=== PATIENT | female | born 1960 | race Caucasian/White ===

== ENCOUNTER 2017-06-03 02:57 | Emergency (ER) | payer OTHER ==
[~2017-06-03] VITALS: Ht 157.5 cm; Wt 81.6 kg
[2017-06-03 03:03] VITALS: Ht 157.5 cm; Wt 81.6 kg
[2017-06-03 04:42] LABS: CALCIUM 8.7 mg/dL (8.5-10.1); CARBON DIOXIDE 23.1 mmol/L (21-32); CHLORIDE SERUM 105 mmol/L (98-107); CREATININE SERUM 0.8 mg/dL (0.6-1.0); GFR1 > 60 mL/min; GLUCOSE SERUM 118 mg/dL (74-106); SODIUM SERUM 140 mmol/L (136-145)
[2017-06-03 04:46] LABS: BASOPHIL % 0.5 % (0-2); PLATELET COUNT 194 x10^3mcL (130-400); RED CELL DISTRIBUTION WIDTH 14.9 % (11.5-14.5)
[2017-06-03 04:48] LABS: ALBUMIN 3.9 g/dL (3.4-5.0); ALKALINE PHOSPHATASE 151 U/L (46-116); ALT/SGPT 30 U/L (14-59); AST/SGOT 16 U/L (15-37); BILIRUBIN TOTAL 0.3 mg/dL (0.20-1.00); TOTAL PROTEIN, SERUM 7.2 g/dL (6.4-8.2)
[2017-06-03 06:35] VITALS: BP 120/68
== END 2017-06-03 06:35 | disposition home or self-care (01) ==
LOC: ED 02:57
PROVIDERS: Emergency Medicine Emergency Medical Services
DX: R07.89 Other chest pain (principal); E05.90 Thyrotoxicosis, unspecified without thyrotoxic crisis or storm; Z88.0 Allergy status to penicillin; Z90.710 Acquired absence of both cervix and uterus
CPT/HCPCS: 36415; 85378

== ENCOUNTER 2017-06-14 01:22 | Inpatient (IN) | payer OTHER ==
[~2017-06-14] VITALS: Ht 157.5 cm; Wt 85.0 kg
[2017-06-14 01:28] VITALS: Ht 157.5 cm; Wt 85.0 kg
[2017-06-14 02:38] LABS: BASOPHIL % 0.4 % (0-2); PLATELET COUNT 221 x10^3mcL (130-400)
[2017-06-14 02:46] LABS: CALCIUM 9.6 mg/dL (8.5-10.1); CARBON DIOXIDE 26.7 mmol/L (21-32); CHLORIDE SERUM 104 mmol/L (98-107); CREATININE SERUM 0.7 mg/dL (0.6-1.0); GFR1 > 60 mL/min; GLUCOSE SERUM 121 mg/dL (74-106); POTASSIUM SERUM 4.4 mmol/L (3.5-5.1); RED CELL DISTRIBUTION WIDTH 14.6 % (11.5-14.5); SODIUM SERUM 140 mmol/L (136-145)
[2017-06-14 02:51] LABS: ALBUMIN 4.1 g/dL (3.4-5.0); ALKALINE PHOSPHATASE 154 U/L (46-116); ALT/SGPT 38 U/L (14-59); AST/SGOT 23 U/L (15-37); BILIRUBIN TOTAL 0.24 mg/dL (0.20-1.00); TOTAL PROTEIN, SERUM 7.7 g/dL (6.4-8.2)
[2017-06-14 03:07] LABS: FREE T4 0.74 ng/dL (0.76-1.46)
[2017-06-14] MEDS ORDERED: METHIMAZOLE10 MG PO (04:21)
[2017-06-14 04:54] LABS: MAGNESIUM 2.1 mg/dL (1.8-2.4)
[2017-06-14 04:58] VITALS: BP 114/88
[2017-06-14 05:01] LABS: T3 TOTAL 0.98 ng/mL
[2017-06-14 05:02] LABS: FREE T4 0.76 ng/dL (0.76-1.46); FREE THYROXINE INDEX 1.6 ug/dL (1.4-4.5); T4(THYROXINE) 5.4 ug/dL (4.7-13.3)
[2017-06-14 06:07] VITALS: BP 114/68
[2017-06-14 10:20] VITALS: BP 106/64
[2017-06-14 12:04] LABS: microscopic required? NO
[2017-06-14 12:22] LABS: urine erythrocyte NEGATIVE (NEGATIVE)
[2017-06-14 12:31] LABS: AMPHETAMINE QUAL UR NONE DETECTED (NEG <=1000)
[2017-06-14 13:35] VITALS: BP 102/84
[2017-06-14 17:44] VITALS: BP 101/56
[2017-06-14 21:35] VITALS: BP 110/66
[2017-06-15 05:29] VITALS: BP 106/62
[2017-06-15 06:44] LABS: BASOPHIL % 0.2 % (0-2); PLATELET COUNT 182 x10^3mcL (130-400)
[2017-06-15 06:48] LABS: CALCIUM 8.9 mg/dL (8.5-10.1); CHLORIDE SERUM 105 mmol/L (98-107); CREATININE SERUM 0.7 mg/dL (0.6-1.0); GFR1 > 60 mL/min; GLUCOSE SERUM 107 mg/dL (74-106); POTASSIUM SERUM 4.1 mmol/L (3.5-5.1); SODIUM SERUM 138 mmol/L (136-145)
[2017-06-15 06:56] LABS: RED CELL DISTRIBUTION WIDTH 15.2 % (11.5-14.5)
[2017-06-15] MEDS ORDERED: LEVAQUIN750 MG PO (08:49)
[2017-06-15] MEDS ORDERED: CLEOCIN HCL300 MG PO (08:49)
[2017-06-15] MEDS ORDERED: LAC PO (08:54)
[2017-06-15] MEDS ORDERED: COL100 PO (09:22)
[2017-06-15] MEDS ORDERED: APAP/HYDROCODON1 T13 PO (09:23)
[2017-06-15 09:30] VITALS: BP 93/53
[2017-06-15 10:17] VITALS: BP 93/53
== END 2017-06-15 13:11 | disposition home or self-care (01) | DRG 139 ==
LOC: ED 01:22 → DU 04:03 → MU 06-15 07:49
PROVIDERS: Emergency Medicine; Family Medicine
DX: J18.9 Pneumonia, unspecified organism (principal); E05.90 Thyrotoxicosis, unspecified without thyrotoxic crisis or storm; E78.2 Mixed hyperlipidemia; Z88.0 Allergy status to penicillin; Z90.710 Acquired absence of both cervix and uterus
CPT/HCPCS: 83880; 84439; 85378; J1885; J1956; J2270; J3490; J7030; Q0092

== ENCOUNTER 2017-06-25 02:04 | Inpatient (IN) | payer OTHER ==
[~2017-06-25] VITALS: Ht 157.5 cm; Wt 79.8 kg
[2017-06-25] VITALS (7 sets, daily range): BP systolic 105–125; BP diastolic 46–73
[~2017-06-25 02:04] MED LIST: APAP/HYDROCODON1 T13 PO; CLEOCIN HCL300 MG PO; COL100 PO; LAC PO; LEVAQUIN750 MG PO; METHIMAZOLE10 MG PO
[2017-06-25 03:09] LABS: CALCIUM 9.3 mg/dL (8.5-10.1); CARBON DIOXIDE 25.7 mmol/L (21-32); CHLORIDE SERUM 104 mmol/L (98-107); CREATININE SERUM 0.7 mg/dL (0.6-1.0); GFR1 > 60 mL/min; GLUCOSE SERUM 132 mg/dL (74-106); POTASSIUM SERUM 4.3 mmol/L (3.5-5.1); SODIUM SERUM 138 mmol/L (136-145)
[2017-06-25 03:13] LABS: ALBUMIN 3.4 g/dL (3.4-5.0); ALKALINE PHOSPHATASE 150 U/L (46-116); ALT/SGPT 45 U/L (14-59); AST/SGOT 27 U/L (15-37); TOTAL PROTEIN, SERUM 7.7 g/dL (6.4-8.2)
[2017-06-25 03:57] LABS: BASOPHIL % 0.4 % (0-2); PLATELET COUNT 362 x10^3mcL (130-400); RED CELL DISTRIBUTION WIDTH 14.5 % (11.5-14.5)
[2017-06-25 04:41] LABS: CHOLESTEROL/HDL RATIO 2.8; MAGNESIUM 2.1 mg/dL (1.8-2.4); PHOSPHOROUS 3.8 mg/dL (2.5-4.9)
[2017-06-25 04:44] LABS: T3 TOTAL 1.03 ng/mL
[2017-06-25 04:48] LABS: FREE T4 0.96 ng/dL (0.76-1.46); T4(THYROXINE) 6.6 ug/dL (4.7-13.3)
[2017-06-25] MEDS ORDERED: APAP500 MG PO (05:08)
[2017-06-25] MEDS ORDERED: VENTOLIN H0.09 MG/A1 INH (05:08)
[2017-06-25 12:42] LABS: UA SPECIFIC GRAVITY >=1.030 (1.005-1.035); microscopic required? YES; urine erythrocyte NEGATIVE (NEGATIVE)
[2017-06-25 13:14] LABS: AMPHETAMINE QUAL UR NONE DETECTED (NEG <=1000)
[2017-06-26 05:20] VITALS: BP 109/70
[2017-06-26 06:12] LABS: BASOPHIL % 0.4 % (0-2); PLATELET COUNT 284 x10^3mcL (130-400)
[2017-06-26 06:27] LABS: RED CELL DISTRIBUTION WIDTH 14.6 % (11.5-14.5)
[2017-06-26 06:33] LABS: CALCIUM 8.6 mg/dL (8.5-10.1); CARBON DIOXIDE 25.2 mmol/L (21-32); CREATININE SERUM 0.6 mg/dL (0.6-1.0); GFR1 > 60 mL/min; GLUCOSE SERUM 117 mg/dL (74-106); POTASSIUM SERUM 4.1 mmol/L (3.5-5.1); SODIUM SERUM 139 mmol/L (136-145)
[2017-06-26 07:22] LABS: CHLORIDE SERUM 106 mmol/L (98-107)
[2017-06-26 09:15] VITALS: BP 137/45
[2017-06-26 12:37] VITALS: BP 98/61
[2017-06-26 17:14] VITALS: BP 95/51
[2017-06-26 20:09] VITALS: BP 105/57
[2017-06-27 05:58] VITALS: BP 105/62
[2017-06-27 06:04] LABS: BASOPHIL % 0.4 % (0-2); PLATELET COUNT 304 x10^3mcL (130-400)
[2017-06-27 06:19] LABS: CALCIUM 8.9 mg/dL (8.5-10.1); CARBON DIOXIDE 28.2 mmol/L (21-32); CHLORIDE SERUM 105 mmol/L (98-107); CREATININE SERUM 0.6 mg/dL (0.6-1.0); GFR1 > 60 mL/min; GLUCOSE SERUM 111 mg/dL (74-106); POTASSIUM SERUM 4.7 mmol/L (3.5-5.1); SODIUM SERUM 142 mmol/L (136-145)
[2017-06-27 06:33] LABS: RED CELL DISTRIBUTION WIDTH 14.7 % (11.5-14.5)
[2017-06-27] MEDS ORDERED: KEFLEX500 M1 PO (08:44)
[2017-06-27] MEDS ORDERED: ZITHROMAX250 MG PO (09:01)
[2017-06-27] MEDS ORDERED: LAC PO (09:02)
[2017-06-27 09:39] VITALS: BP 105/62
[2017-06-27 09:46] VITALS: BP 114/44
[2017-06-27 10:14] VITALS: Ht 157.5 cm; Wt 79.8 kg
== END 2017-06-27 12:07 | disposition home or self-care (01) | DRG 720 ==
LOC: ED 02:04 → DU 03:56
PROVIDERS: Emergency Medicine; Family Medicine Sports Medicine; Student in an Organized Health Care Education/Training Program
DX: A41.9 Sepsis, unspecified organism (principal); N17.0 Acute kidney failure with tubular necrosis; J69.0 Pneumonitis due to inhalation of food and vomit; E05.90 Thyrotoxicosis, unspecified without thyrotoxic crisis or storm; Y95 Nosocomial condition; D64.9 Anemia, unspecified; K76.0 Fatty (change of) liver, not elsewhere classified; Z87.01 Personal history of pneumonia (recurrent); Z88.0 Allergy status to penicillin; Z90.710 Acquired absence of both cervix and uterus; Z79.899 Other long term (current) drug therapy; Z79.1 Long term (current) use of non-steroidal anti-inflammatories (NSAID); Z79.2 Long term (current) use of antibiotics
CPT/HCPCS: 83880; 84439; 87804; 90658; J0692; J0696; J1885; J1940; J1956; J2270; J3370; J3490; J7030; J7050; J7620; Q0092

== ENCOUNTER 2018-04-22 10:28 | Emergency (ER) | payer OTHER ==
[~2018-04-22] VITALS: Ht 157.5 cm; Wt 80.7 kg
[~2018-04-22 10:28] MED LIST changes: +APAP500 MG PO; +KEFLEX500 M1 PO; +VENTOLIN H0.09 MG/A1 INH; +ZITHROMAX250 MG PO
[2018-04-22 10:39] VITALS: Ht 157.5 cm; Wt 80.7 kg
[2018-04-22 11:13] LABS: BASOPHIL % 0.6 % (0-2); PLATELET COUNT 222 x10^3mcL (130-400); RED CELL DISTRIBUTION WIDTH 13.5 % (11.5-14.5)
[2018-04-22 11:24] LABS: CALCIUM 8.7 mg/dL (8.5-10.1); CARBON DIOXIDE 28.1 mmol/L (21-32); CHLORIDE SERUM 105 mmol/L (98-107); CREATININE SERUM 0.9 mg/dL (0.6-1.0); GFR1 > 60 mL/min; GLUCOSE SERUM 98 mg/dL (74-106); POTASSIUM SERUM 4.1 mmol/L (3.5-5.1); SODIUM SERUM 140 mmol/L (136-145)
[2018-04-22 11:29] LABS: ALKALINE PHOSPHATASE 105 U/L (46-116); ALT/SGPT 40 U/L (14-59); AST/SGOT 22 U/L (15-37); BILIRUBIN TOTAL 0.41 mg/dL (0.20-1.00); TOTAL PROTEIN, SERUM 7.6 g/dL (6.4-8.2)
[2018-04-22 12:57] VITALS: BP 135/85
== END 2018-04-22 12:57 | disposition home or self-care (01) ==
LOC: ED 10:28
PROVIDERS: Emergency Medicine
DX: R07.89 Other chest pain (principal); E03.9 Hypothyroidism, unspecified; Z88.0 Allergy status to penicillin; Z90.710 Acquired absence of both cervix and uterus
CPT/HCPCS: 85378; J1885; Q0092

== ENCOUNTER 2018-11-29 22:31 | Emergency (ER) | payer SELFPAY ==
[~2018-11-29] VITALS: Ht 160 cm; Wt 72.6 kg
[2018-11-29 22:36] VITALS: Ht 160 cm; Wt 72.6 kg
[2018-11-30 00:12] VITALS: BP 138/85
== END 2018-11-30 00:12 | disposition home or self-care (01) ==
LOC: ED 22:31
DX: L03.115 Cellulitis of right lower limb (principal); E05.90 Thyrotoxicosis, unspecified without thyrotoxic crisis or storm; Z90.710 Acquired absence of both cervix and uterus; Z88.0 Allergy status to penicillin
CPT/HCPCS: J7030